=== PATIENT | female | born 1965 | race Caucasian/White ===

== ENCOUNTER 2017-03-12 22:41 | Observation (INO) | payer BC ==
[2017-03-12 22:46] VITALS: BMI 38.0
--- NOTE | 2017-03-12 22:50 | ED PDOC ---
Arrival/HPI - General Time Seen by Provider: 03/12/17 22:49 Historian: Patient - History of Present Illness Narrative History of Present Illness (Text): 03/12/17 22:49 Jannie Barrett is a 52 year old female, whose past medical history includes diabetes, who presents to the Emergency Room complaining of an allergic reaction. Patient states she has been experiencing slight facial swelling, bilateral eyelid puffiness, and reports her throat feels like it is closing up/ full. Patient is unsure what triggered the reaction and denies any changes in diet. Patient denies any shortness of breath, wheezing, nausea, vomiting, headache, dizziness, or any other complaints. Patient also complaining discomfort to her right armpit. Time/Duration: Other (tonight) Symptom Onset: Gradual Symptom Course: Unchanged Activities at Onset: Rest, Light Context: Home Past Medical History - Provider Review Nursing Documentation Reviewed: Yes - Infectious Disease Hx of Infectious Diseases: None - Endocrine/Metabolic Hx Diabetes Mellitus Type 2: Yes - Psychiatric Hx Substance Use: No - Surgical History Hx Section: Yes (x1) - Anesthesia Hx Anesthesia: Yes Hx Anesthesia Reactions: No Hx Malignant Hyperthermia: No Family/Social History - Physician Review Nursing Documentation Reviewed: Yes Family/Social History: No Known Family HX Smoking Status: Never Smoked Hx Alcohol Use: Yes Hx Substance Use: No Allergies/Home Meds Allergies/Adverse Reactions: Allergies No Known Allergies Allergy (Verified 02/21/16 23:29) Home Medications: Home Meds Medication Instructions Recorded Confirmed MetFORMIN [glucoPHAGE] 500 mg PO DAILY 02/21/16 02/21/16 Review of Systems - Physician Review All systems were reviewed & negative as marked: Yes - Review of Systems Constitutional: Normal. absent: Fevers Eyes: Other (+eyelid puffiness) Respiratory: Normal. absent: SOB, Cough Cardiovascular: Normal. absent: Chest Pain Gastrointestinal: Normal. absent: Diarrhea, Nausea, Vomiting Genitourinary Female: Normal Musculoskeletal: Normal Skin: Other (+mild facial swelling) Neurological: Normal. absent: Headache, Dizziness Physical Exam Vital Signs Reviewed: Yes Vital Signs Temp Pulse Resp BP Pulse Ox 03/13/17 05:05 70 20 140/65 98 03/13/17 02:14 98.0 F 78 20 138/64 98 03/12/17 22:51 99.1 F 77 22 152/77 H 97 Temperature: Afebrile Blood Pressure: Normal Pulse: Regular Respiratory Rate: Normal Appearance: Positive for: Well-Appearing, Non-Toxic, Comfortable Pain Distress: None Mental Status: Positive for: Alert and Oriented X 3 - Systems Exam Head: Present: Atraumatic, Normocephalic, Swelling (Swelling to bilateral eyelids with some scanty discharge) Pupils: Present: PERRL Extroacular Muscles: Present: EOMI Conjunctiva: Present: Injected (mildly) Ears: Present: Normal, NORMAL TM, Other (mild palpable tenderness lefy ear auricle/minimal erythema to the canal). No: Erythema, TM Bulging, Fluid, TM Perf Mouth: Present: Moist Mucous Membranes Pharnyx: Present: Normal. No: ERYTHEMA, EXUDATE, Peritonsilar Swelling, Uvular Deviation, Muffled/Hoarse Voice, Strider, Soft Palate/Uvular Edema Nose (External): Present: Atraumatic Nose (Internal): Present: Normal Inspection Neck: Present: Normal Range of Motion Respiratory/Chest: Present: Clear to Auscultation, Good Air Exchange. No: Respiratory Distress, Accessory Muscle Use Cardiovascular: Present: Regular Rate and Rhythm, Normal S1, S2. No: Murmurs Abdomen: Present: Normal Bowel Sounds. No: Tenderness, Distention, Peritoneal Signs Upper Extremity: Present: Normal ROM, NORMAL PULSES, Erythema (Minimal erythema to right axilla/minimal swelling/no fluctuance), Neurovascularly Intact, Capillary Refill < 2s. No: Tenderness, Swelling, Temperature Abnormalties, Deformity Neurological: Present: GCS=15, CN II-XII Intact, Speech Normal, Motor Func Grossly Intact, Normal Sensory Function Skin: Present: Warm, Dry, Normal Color. No: Rashes Psychiatric: Present: Alert, Oriented x 3, Normal Insight, Normal Concentration Medical Decision Making ED Course and Treatment: 03/12/17 22:49 Impression: 52 year old female c/o mild facial swelling, bilateral eyelid puffiness. Differential Diagnosis included but are not limited to: allergic reaction Plan: -- Benadryl -- Pepcid -- Solu-medrol -- Reassess and disposition Prior Visits: Notes and results from previous visits were reviewed. Progress Notes: - Medication Orders Current Medication Orders: Discontinued Medications Amoxicillin/Clavulanate Potassium (Augmentin 875 Mg-125 Mg Tab) 1 tab PO ONCE STA PRN Reason: Protocol Stop: 03/13/17 06:06 Last Admin: 03/13/17 06:48 Dose: 1 tab Diphenhydramine HCl (Benadryl) Confirm Administered Dose 50 mg .ROUTE .STK-MED ONE Stop: 03/12/17 22:54 Last Admin: 03/12/17 22:58 Dose: 50 mg Diphenhydramine HCl (Benadryl) 50 mg IVP ONCE ONE Stop: 03/12/17 23:09 Last Admin: 03/12/17 23:10 Dose: 50 mg Famotidine (Pepcid) 20 mg IVP STAT STA Stop: 03/12/17 23:09 Last Admin: 03/13/17 01:28 Dose: 20 mg Methylprednisolone (Solu-Medrol) Confirm Administered Dose 125 mg .ROUTE .STK- MED ONE Stop: 03/12/17 22:54 Last Admin: 03/12/17 22:58 Dose: 125 mg Methylprednisolone (Solu-Medrol) 125 mg IVP ONCE ONE Stop: 03/12/17 23:09 Last Admin: 03/12/17 23:10 Dose: 125 mg Tobramycin Sulfate (Tobrex 0.3% Ophth Soln) 0 drop OU ONCE STA Stop: 03/13/17 06:34 Last Admin: 03/13/17 06:49 Dose: 0.3 % Trimethoprim/Sulfamethoxazole (Bactrim Ds Tab) 1 tab PO ONCE ONE PRN Reason: Protocol Stop: 03/13/17 06:09 Last Admin: 03/13/17 06:48 Dose: 1 tab ED OBSERVATION Discharge: Yes Date of observation admission: 03/12/17 Time of observation admission: 22:50 - Observation admission statement Patient is being placed in observation because:: allergic reaction - Goals of Observation Goals of observation are:: improvement of symptoms - Progress Note Progress Note: 03/12/17 22:50 Pt presented for allergic reaction. Benadryl, Solu-medrol, and Pepcid ordered. 03/13/17 00:50 Pt resting comfortably, no acute distress. 03/13/17 02:50 Pt resting comfortably, no acute distress. 03/13/17 04:45 Pt sleeping currently/resting comfortably, no acute distress. - Scribe Statement The provider has reviewed the documentation as recorded by the Scribe Bonnie Carterzon Provider Attestation: All medical record entries made by the Raquel were at my direction and personally dictated by me. I have reviewed the chart and agree that the record accurately reflects my personal performance of the history, physical exam, medical decision making, and the department course for this patient. I have also personally directed, reviewed, and agree with the discharge instructions and disposition. Disposition/Present on Arrival - Present on Arrival Any Indicators Present on Arrival: No History of DVT/PE: No History of Uncontrolled Diabetes: Yes Urinary Catheter: No History Surgical Site Infection Following: None - Disposition Have Diagnosis and Disposition been Completed?: Yes Diagnosis: Allergic reaction, Conjunctivitis, Otitis externa, Hidradenitis axillaris Disposition: HOME/ ROUTINE Disposition Time: 06:14 Patient Plan: Discharge Condition: GOOD
[2017-03-12] MEDS ORDERED: DiphenhydrAMINE 50 mg/ml Inj ONE (22:53)
[2017-03-12] MEDS ORDERED: DiphenhydrAMINE 50 mg/ml Inj IVP ONE (23:08)
[2017-03-13 02:15] VITALS: RESP 20; TEMP 98; O2SAT 98
[2017-03-13 05:06] VITALS: BP 140/65; PULSE 70
[2017-03-13] MEDS ORDERED: Amoxicillin-Clav 875-125 mg Tab PO STA (06:05)
[2017-03-13] MEDS ORDERED: Tmp-Smz 800 mg-160 mg DS Tab PO ONE (06:08)
[2017-03-13] MEDS ORDERED: Tobramycin 0.3% OPHT SOLN OU STA (06:33)
== END 2017-03-13 06:12 | disposition home or self-care (01) ==
LOC: ED 22:41 → EROBSV 22:50
PROVIDERS: ADMIT Emergency Medicine; ATTEND Emergency Medicine
DX: T78.40XA Allergy, unspecified, initial encounter (principal); X58.XXXA Exposure to other specified factors, initial encounter; L73.2 Hidradenitis suppurativa; H60.90 Unspecified otitis externa, unspecified ear; H10.9 Unspecified conjunctivitis; E11.9 Type 2 diabetes mellitus without complications
CPT/HCPCS: 96374; 96375; 99284; G0378; J1200; J2930

== ENCOUNTER 2018-04-16 22:55 | Emergency (ER) | payer BC ==
[2018-04-16 22:55] VITALS: BMI 38.0
[2018-04-16 23:13] VITALS: RESP 18; TEMP 98.3
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
[2018-04-17] MEDS ORDERED: Lidocaine 5% Patch TD STA (00:52)
[2018-04-17 01:25] VITALS: BP 155/72; PULSE 79; O2SAT 100
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
== END 2018-04-17 01:15 | disposition home or self-care (01) ==
LOC: ED 22:55
DX: S43.52XA Sprain of left acromioclavicular joint, initial encounter (principal); V49.9XXA Car occupant (driver) (passenger) injured in unspecified traffic accident, initial encounter; E11.9 Type 2 diabetes mellitus without complications